=== PATIENT | male | born 1950 | race Two or more races ===

== ENCOUNTER 2020-12-28 05:57 | Day surgery (SDC) | payer OTHER | END 2020-12-28 12:45 | disposition home or self-care (01) | LOC: CIR.AMB 05:57 | PROVIDERS: ATTEND Orthopaedic Surgery Hand Surgery | DX: M67.441 Ganglion, right hand (principal); M65.311 Trigger thumb, right thumb; Z20.822 Contact with and (suspected) exposure to COVID-19 ==